=== PATIENT | female | born 1980 | race African-American/Black ===

== ENCOUNTER 2024-05-18 19:48 | Emergency (ER) | payer OTHER, MEDICAID, SELFPAY ==
--- OUTSIDE RECORDS SUMMARY | 2024-05-18 19:52 | XMS_ITS | Referral Summary ---
Author Organization [facility] Address [address] [place] [address] Care Team Providers Care Administrative Liaison Name Role Phone Jimi Gonsales MD Unavailable [phone] Cody QUACH MD, Quintin Galvan Unavailable [phone] Zoe Doyle OT Unavailable [phone] Sindy Daniel NP Primary Care Provider [phone] Allergies No known active allergies Medications escitalopram (LEXAPRO) 10 mg tablet Take 1 tablet (10 mg total) by mouth daily 30 tablet 1 1 Active amoxicillin-clavula andres (AUGMENTIN) 875-125 mg per tablet Take 1 tablet by mouth every 12 (twelve) hours 14 tablet 1 Active diphenhydrAMINE (BENADRYL) 25 mg capsule Take 1 tablet/capsu le (25 mg total) by mouth every 6 (six) hours 20 tablet/capsu le 2 Active ondansetron ODT (ZOFRAN-ODT) 4 mg disintegrating tablet Take 1 tablet (4 mg total) by mouth every 8 (eight) hours as needed for nausea or vomiting 20 tablet 4 Active omeprazole (PriLOSEC) 40 mg capsule Take 1 capsule (40 mg total) by mouth daily 30 capsule 4 Active Active Problems Problem Noted Date Diagnosed Date Anxiety 12/18/2020 Assessment & Plan (12/20/2020 1:31 PM CDT): Patient is very anxious and hyperactive in office today. She notes that she has been under a lot of stress with family stressors (son recently sent to detention for 9 years). She has hx of anxiety. Will trial Lexapro, side effects and what to expect from medication has been discussed with patient in office today. Denies SI. 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 Gender Identity Not on file Sexual Orientation Not on file Last Filed Vital Signs Vital Sign Reading Time Taken Comments Blood Pressure 148/97 11/03/2023 7:57 PM CDT Pulse 78 11/03/2023 7:57 PM CDT Temperature 36.6 C (97.9 F) 11/03/2023 7:57 PM CDT Respiratory Rate 20 11/03/2023 7:57 PM CDT Oxygen Saturation 98% 11/03/2023 7:57 PM CDT Inhaled Oxygen Concentration - - Weight 74.8 kg (165 lb) 11/03/2023 7:57 PM CDT Height 157.5 cm (5' 2 ) 11/03/2023 7:57 PM CDT Body Mass Index 30.18 11/03/2023 7:57 PM CDT Plan of Treatment Not on file Insurance [facility]AN [facility] Care Teams Administrative Liaison Relationship Specialty Start Date End Date Sindy Daniel NP [address] [place] [address] [place] [address] PCP - General Family Medicine 12/18/20 Jimi Gonsales MD 03/10/17 Quintin Ross III, MD [address] [id number] [place] [address] Surgeon Plastic Surgery 03/18/17 Zoe Doyle, OT [address] [facility] [place] [address] Occupational Therapist Occupational Therapy 04/19/17
--- OUTSIDE RECORDS SUMMARY | 2024-05-18 19:52 | XMS_ITS | Patient Health Record ---
Author Organization [facility] Address [address] [place] [address] Care Team Providers Care Principal Web Developer Name Role Phone Barbara Oscar Primary Care Provider Allergies No Known Allergies Reason For Referral No Information Medications Medication SIG (Take, Route, Frequency, Duration) Notes Start Date End Date Status Losartan Potassium 25 MG 1 tablet Orally Once a day for 30 day(s) 05/01/2021 Active Venlafaxine HCl ER 37.5 MG 1 capsule wit h food Orally Once a day for 30 day(s) 05/01/2021 Active Acyclovir 400 MG TAKE 1 TABLET BY PARTH TH THREE TIMES A DAY FOR 10 DAYS for 10 Active Immunizations Vaccine Route Administration Date Status Comme nts FLU VAC NO PRSV 4 REHAN >6 MO Unknown 05/01/2021 Refused Social History Tobacco Use: Social History Observation Description Date Details (start date - stop date) Current Smoker NA - NA Tobacco Use/Smoking Question Answer Notes Are you a current smoker How often do you smoke cigarettes? every day How many cigarettes a day do you smoke? 11-20 How soon after you wake up do you smoke your fir st cigarette? within 5 minutes Are you interested in quitting? Not ready to kvng t Alcohol Screen (Audit-C) Question Answer Notes Did you have a drink containing alcohol in the p ast year? No Points 0 Interpretation Negative Sexual History Question Answer Notes Had sex in the past 12 months (vaginal, oral, or anal)? Yes with Men only Use protection? No Prevention strategies discussed: Other Have you ever had a Sexually transmitted disease ? Yes Last menstrual period 04/01/2021 Tobacco use other than smoking: Question Answer Notes Are you an other tobacco user? No Problems Problem Type SNOMED Code ICD Code Onset Dates Problem Status W/U Status Risk Notes Problem 531323342 Depression with anxiety (F41.8) Active confirmed Problem 32424137 Cigarette nicoti ne dependence without complication (F17.210) Active confirmed Problem 85947976 Primary hypertension (I10) Active confirmed Problem 31850992 Herpes simplex vulvovaginitis (A60.04) Active confirmed Plan Of Treatment Pending Test Test Name Order Date HIV 1/2 ANTIGEN/ANTIBODY,FOURTH GENERATI ON W/RFL 04/11/2018 COMPREHENSIVE METABOLIC PANEL 04/11/2018 CBC (INCLUDES DIFF/PLT) 04/11/2018 HCG, TOTAL, QN 04/11/2018 HEPATITIS C AB W/REFL TO HCV RNA, QN, PC R 04/11/2018 SYPHILIS ANTIBODY CASCADING REFLEX 04/11 Insurance Providers Payer Name Payer Address Payer Phone Subscriber Number Group Number Insured Name Patient Relationship to Insured Coverage Start Date Coverage End Date [place] [employer] Blue [place] [address] [place] [address] [id number] Nikky Lawrence Self - patient is the [facility] [address] [place] [address] [id number] Nikky Lawrence Self - patient is the insured Medications Administered Medication Instructions Date of Administration Dosage Notes cefTRIAXone Sodium 05/07/2021 1 mL Medical (General) History Medical History History ICD Code depression anxiety Surgical History Surgery Date(Month/Year) 5 vaginal deliveries
--- OUTSIDE RECORDS SUMMARY | 2024-05-18 19:52 | XMS_ITS | Clinical Summary ---
Author Organization [facility] Address [address] [place] [address] Care Team Providers Care Concaver Name Role Phone Jimi Gonsales MD Unavailable [phone] Cody QUACH MD, Quintin Galvan Unavailable [phone] Zoe Doyle OT Unavailable [phone] Sindy Daniel NP Primary Care Provider [phone] Allergies No known active allergies Medications escitalopram [...] with family stressors (son recently sent to fdc for 9 years). She has hx of anxiety. Will trial Lexapro, side effects and what to expect from medication has been discussed with patient in office today. Denies SI. 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 Gender Identity Not on file Sexual Orientation Not on file Obstetrics History Last Filed Vital Signs Vital Sign Reading [...] 11/03/2023 7:57 PM CDT Plan of Treatment Health Maintenance Due Date Last Done Comments Breast Cancer Screening-Mammogram 1981 Cervical Cancer Screening 1981 Hepatitis C Screening 1981 DTaP/Tdap/Td Vaccine (1 - Tdap) 1992 Varicella Vaccines (1 of 2 - 13+ 2-dose series) 1994 Regular Well Visit/Exam 18-64 06/14/1999 Pneumococcal vaccine <65 (1 of 2 - PCV) 2000 Depression Screening 12/18/2021 12/18/2020 Influenza Vaccine (#1) 2023 12/15/2022 Hepatitis B Screening Completed 07/18/2001 , 07/01/2000 HPV Vaccines Aged Out No longer eligi ble based on patient's age to complete this topic Insurance [facility] Care Teams Concaver Relationship Specialty Start Date End Date Sindy Daniel NP [address] [facility] [place] [address] PCP - General Family Medicine 12/18/20 Jimi Gonsales MD 03/10/17 Qiuntin Ross III, MD [address] [facility] [id number] [place] [address] Surgeon Plastic Surgery 03/18/17 Zoe Doyle OT [address] [facility] [place] [address] Occupational Therapist Occupational Therapy 04/19/17
--- OUTSIDE RECORDS SUMMARY | 2024-05-18 19:52 | XMS_ITS | Clinical Summary ---
Author Organization [facility] Address [address] [place] [address] Phone Care Team Providers Care Filler Mixer Name Role Phone Provider, None Primary Care Provider Unavailabl e Allergies No known active allergies Medications ibuprofen (MOTRIN) 800 MG TabletIndicatio ns:Toothache Take 1 Tablet by mouth every 8 hours as needed for Fever or Moderate or more severe pain. Indications: Toothache 30 Tablet 4 Active Encounters Date Type Department Care Team Description 04/10/2024 7:02 PM TOOL SALVAGE WORKER - 04/10/2024 8:56 PM TOOL SALVAGE WORKER Emergency [facility] Emergency [address] [place] [address] Terrance Correa MD Contusion of left foot, initial encounter Discharge Disposition: Discharged to home or Selfcare 04/10/2024 Travel from Last 3 Months Social History Tobacco Use Types Packs/Day Years Used Date Smoking Tobacco: Unknown Tobacco Cessation:Counseling Given: Not Answered Alcohol Use Standard Drinks/Week Comments Not Currently 0 (1 standard drink = 0.6 oz pur e alcohol) Comments No Sex and Gender Information Value Date Recorded Sex Assigned at Female 12/31/2023 5:02 AM TOOL SALVAGE WORKER Legal Sex Female 12:32 AM CDT Gender Identity Female 12/31/2023 5:02 AM TOOL SALVAGE WORKER Sexual Orientation Not on file Last Filed Vital Signs Vital Sign Reading Time Taken Comments Blood Pressure 137/75 04/10/2024 8:50 PM TOOL SALVAGE WORKER Pulse 92 04/10/2024 8:50 PM TOOL SALVAGE WORKER Temperature 36.8 C (98.2 F) 04/10/2024 8:50 PM TOOL SALVAGE WORKER Respiratory Rate 18 04/10/2024 8:50 PM TOOL SALVAGE WORKER Oxygen Saturation 100% 04/10/2024 8:50 PM TOOL SALVAGE WORKER Inhaled Oxygen Concentration - - Weight 80.3 kg (177 lb) 04/10/2024 5:59 PM TOOL SALVAGE WORKER Height 157.5 cm (5' 2 ) 04/10/2024 5:59 PM TOOL SALVAGE WORKER Body Mass Index 32.37 04/10/2024 5:59 PM TOOL SALVAGE WORKER Plan of Treatment Health Maintenance Due Date Last Done Comments Hepatitis C Virus (HCV) Screening 1981 Mammogram 1981 Hepatitis B Immunization (3 of 3 - 19+ 3-dose series) 09/12/2001 07/18/2001, 07/01/2000 Pap Smear 2002 Cervical Cancer Screening (CCS) 06/14/2011 HPV/Cotest 06/14/2011 Discussion re Starting/Frequency of Mammograms 2021 Influenza Immunization (#1) 2023 12/15/2022 SARS-COV-2 Immunization ( season) 2023 Respiratory Syncytial Virus (RSV) Immunization (Adult) (1 - 1-dose 75+ series) 2056 DTaP/Tdap/Td Immunization Discontinued 09/01/2020 TdaP Immunization Completed 09/01/2020 Meningococcal Immunization (ACWY) Aged Out No longer eligible based on patient's age to complete this topic Pneumococcal Immunization Combined Aged Out No longer eligible based on patient's age to complete this topic Rotavirus Immunization Aged Out No lo nger eligible based on patient's age to complete this topic Procedures Procedure Name Priority Date/Time Associated Diagnosis Comments XR FOOT 3 OR MORE VIEWS LEFT STAT 04/10/2024 7:34 PM TOOL SALVAGE WORKER XR ANKLE 3 OR MORE VIEWS LEFT STAT 04/10/2024 6:43 PM TOOL SALVAGE WORKER from Last 3 Months Results * XR FOOT 3 OR MORE VIEWS LEFT (04/10/2024 7:34 PM TOOL SALVAGE WORKER) Anatomical Region Laterality Modality LOWER EXTREMITY, foot Left Digital Ra diography 04/10/2024 8:19 PM TOOL SALVAGE WORKER Impressions 04/10/2024 8:22 PM TOOL SALVAGE WORKER IMPRESSION: No acute osseous abnormality. A 4 mm linear radiodense structure within the plantar soft tissues of the forefoot at the level of the great toe proximal phalanx could reflect a foreign body or soft tissue mineralization. Narrative 04/10/2024 8:22 PM TOOL SALVAGE WORKER EXAM DESCRIPTION: XR FOOT 3 OR MORE VIEWS LEFT REASON FOR STUDY: pain in left foot and left ankle after foot was slammed in a door at 0730 am today. Pt states she is in severe pain and difficulty ambulating. TECHNIQUE: 3 radiographic view(s) of the left foot . COMPARISON: 08/21/2023, 04/10/2024 FINDINGS: No acute fracture or acute traumatic malalignment. Joint spaces are within normal limits. No focal bone lesions or erosions. No ankle effusion. There is a 4 mm linear radiodense structure within the plantar soft tissues of the forefoot at the level of the great toe proximal phalanx could reflect a foreign body or soft tissue mineralization. Mild foot soft tissue swelling. THIS IS AN ELECTRONICALLY VERIFIED FINAL REPORT 04/10/2024 8:19 PM - Electronically signed by Compa Finney M.D. AT: AT Report ID: [id number] Reading Location: [place] [id number] Procedure Note Compa Finney MD - 04/10/2024 EXAM DESCRIPTION: XR FOOT 3 OR MORE VIEWS LEFT REASON FOR STUDY: pain in left foot and left ankle after foot was slammed in a door at 0730 am today. Pt states she is in severe pain and difficulty ambulating. TECHNIQUE: 3 radiographic view(s) of the left foot . COMPARISON: 08/21/2023, 04/10/2024 FINDINGS: No acute fracture or acute traumatic malalignment. Joint spaces are within normal limits. No focal bone lesions or erosions. No ankle effusion. There is a 4 mm linear radiodense structure within the plantar soft tissues of the forefoot at the level of the great toe proximal phalanx could reflect a foreign body or soft tissue mineralization. Mild foot soft tissue swelling. THIS IS AN ELECTRONICALLY VERIFIED FINAL REPORT 04/10/2024 8:19 PM - Electronically signed by Compa Finney M.D. AT: AT Report ID: [id number] Reading Location: [id number] IMPRESSION: No acute osseous abnormality. A 4 mm linear radiodense structure within the plantar soft tissues of the forefoot at the level of the great toe proximal phalanx could reflect a foreign body or soft tissue mineralization. us Terrance Correa MD IMG DIAGNOSTIC ORDER LOKI Final Result * XR ANKLE 3 OR MORE VIEWS LEFT (04/10/2024 6:43 PM TOOL SALVAGE WORKER) Anatomical Region Laterality Modality LOWER EXTREMITY, ankle Left Digital R adiography 04/10/2024 7:21 PM TOOL SALVAGE WORKER Impressions 04/10/2024 7:24 PM TOOL SALVAGE WORKER IMPRESSION: No fracture or malalignment identified. Narrative 04/10/2024 7:24 PM TOOL SALVAGE WORKER EXAM DESCRIPTION: XR ANKLE 3 OR MORE VIEWS LEFT REASON FOR STUDY: pain in left foot and left ankle after foot was slammed in a door at 0730 am today. Pt states she is in severe pain and difficulty ambulating. TECHNIQUE: Frontal, oblique, and lateral views of the left ankle . COMPARISON: None FINDINGS: BONES/JOINTS: No fracture, malalignment, or suspicious osseous lesion is identified. Joint spaces are preserved. SOFT TISSUES: Unremarkable. THIS IS AN ELECTRONICALLY VERIFIED FINAL REPORT 04/10/2024 7:21 PM - Electronically signed by Earnest Alexis M.D. AR: JOE Report ID: [id number] Reading Location: [id number] Procedure Note Earnest Alexis MD - 04/10/2024 EXAM DESCRIPTION: XR ANKLE 3 OR MORE VIEWS LEFT REASON FOR STUDY: pain in left foot and left ankle after foot was slammed in a door at 0730 am today. Pt states she is in severe pain and difficulty ambulating. TECHNIQUE: Frontal, oblique, and lateral views of the left ankle . COMPARISON: None FINDINGS: BONES/JOINTS: No fracture, malalignment, or suspicious osseous lesion is identified. Joint spaces are preserved. SOFT TISSUES: Unremarkable. THIS IS AN ELECTRONICALLY VERIFIED FINAL REPORT 04/10/2024 7:21 PM - Electronically signed by Earnest Alexis M.D. AR: JOE Report ID: [id number] Reading Location: [id number] IMPRESSION: No fracture or malalignment identified. Terrance Correa MD IMG DIAGNOSTIC ORDER LOKI Final Result from Last 3 Months Insurance [facility] MEDICAID [place] Care Teams Filler Mixer Relationship Specialty Start Date End Date Provider, None [place] PCP - General 11/23/17
[2024-05-18 19:53] VITALS: BP 115/81; PULSE 104; RESP 20; TEMP 36.4; O2SAT 98
--- NOTE | 2024-05-18 20:07 | ED.DENTAL ---
HPI - Dental/Oral General Chief complaint: Dental/Oral Stated complaint: teeth pain Source: patient Mode of arrival: ambulatory History of Present Illness HPI Narrative: 43-year-old female presented for complaint of left lower dental pain. Onset today. She endorses a history of poor dentition. Denies facial swelling, difficulty swallowing, nausea vomiting, fever. She plans to follow-up with a dentist after her birthday. She took naproxen without relief. MD Complaint: tooth pain Related Data Allergies Allergy/AdvReac Type Severity Reaction Status Date / Time sulfamethoxazole Allergy Mild HIVES, RASH Verified 05/18/24 19:54 trimethoprim Allergy Mild HIVES, RASH Verified 05/18/24 19:54 Review of Systems Review of Systems: CONSTITUTIONAL: Denies body aches, fever, chills ENT: Denies rhinorrhea, congestion, sore throat, or otalgia. Reports dental pain CARDIOVASCULAR: Denies chest pain, palpitations RESPIRATORY: Denies cough or dyspnea. SKIN: Denies rash, itching, or wounds. MUSCULOSKELETAL: Denies myalgia. NEUROLOGIC: Denies headache, numbness, tingling, or weakness. PMFSH Comments At time of signature, I have reviewed and agree with nursing past medical, surgical, social and family history unless otherwise noted. Please see nursing chart for further information. There is no relevant family history pertinent to the presenting complaint Exam Narrative: GENERAL: Appears in pain; no acute distress. HEAD: Normocephalic, atraumatic. EYES: EOMI. No redness or drainage. Conjunctivae normal. ENT: Dental pain location of left lower gumline, multiple broken teeth and caries through our, left lower gumline with mild swelling and erythema, tender, no active drainage. Mucous membranes pink and moist. TMs normal bilaterally. Throat normal. no dysphagia, odynophagia, dysphonia, or dyspnea. No uvular deviation or soft palate edema. NECK: Normal AROM. No lymphadenopathy. no induration below mandible, no neck pain. CHEST: No respiratory distress. Clear to auscultation. HEART: Regular rate and rhythm. No murmur appreciated. SKIN: Warm, dry, no rash. Normal skin turgor. NEURO: No focal deficits. Alert and oriented x3. Gait steady. Course Course Emergency Course: Patient is aware of diagnosis, understands and agrees to treatment plan. Anticipatory guidance given. Patient agrees to follow-up as directed and is aware of reasons to seek care at the emergency department. Portions of this record may have been created with voice recognition software Level of Care: Express Care Visit Vital Signs Vital signs: Vital Signs Temperature 97.5 F L 05/18/24 19:53 Pulse Rate 104 H 05/18/24 19:53 Respiratory Rate 20 05/18/24 19:53 Blood Pressure 115/81 05/18/24 19:53 Pulse Oximetry 98 05/18/24 19:53 Oxygen Delivery Room Air 05/18/24 19:53 Temperature 97.5 F L 05/18/24 19:53 Pulse Rate 104 H 05/18/24 19:53 Respiratory Rate 20 05/18/24 19:53 Blood Pressure 115/81 05/18/24 19:53 Pulse Oximetry 98 05/18/24 19:53 Oxygen Delivery Room Air 05/18/24 19:53 MDM - Dental/Oral MDM Narrative Medical decision making narrative: Patients pain and complaint coupled with physical findings are consistent with dentalgia. There are no focal signs of space occupying lesions that are compromising to the airway; Patient is non-toxic appearing. The floor of the mouth is soft with no signs of Sung's Angina; Patient is without trismus or drooling and able to swallow secretions. Patient is felt appropriate for discharge home with dental follow up. Discharge Plan Discharge Clinical Impression: Toothache Patient Disposition: Home, Self-Care Condition: Stable Instructions: Antibiotic Form, Dental Abscess (ED) Additional Instructions: Take antibiotic as directed May apply heat or ice to the face Gentle brushing and flossing. Rinse mouth with warm salt water at least 2 times a day. Alternate Tylenol and ibuprofen (as prescribed) as needed for pain . do not take additional NSAIDs - ibuprofen, Motrin, Aleve, Advil etc. Follow-up with the dentist as soon as possible--see the list provided go to the ER for worsening symptoms or concerns Patient Language: Moldovan Prescriptions: New ibuprofen 800 mg tablet 800 mg PO TID PRN (Reason: pain) Qty: 15 0RF lidocaine HCl [Lidocaine Viscous] 2 % solution 1 applic mucous membrane TID PRN (Reason: pain) Qty: 100 0RF Rx Instructions: apply with cotton swab to site of pain amoxicillin-pot clavulanate 875-125 mg tablet 1 tablet PO Q12H 7 Days Qty: 14 0RF Follow-up/Referrals: PHYSICIAN NOT ON STAFF,NONSTAFF [Primary Care Provider] - Time of Disposition: 20:21
[2024-05-18] MEDS: IBUPROFEN 400 MG TABLET 800 MG PO (20:16)
== END 2024-05-18 20:25 | disposition home or self-care (01) ==
PROVIDERS: Emergency Provider Nurse Practitioner Family
DX: K08.89 Other specified disorders of teeth and supporting structures (principal)
CPT/HCPCS: 99213; A9270; G0463